=== PATIENT | female | born 1960 | race African-American/Black ===

== ENCOUNTER 2016-11-22 15:34 | Emergency (ER) | payer OTHER ==
[~2016-11-22 15:34] MED LIST: A/T/S 2% GEL30 GM TOP; ALBUTEROL17 GM INH; ATENOLOL PO; BENZONATATE PO; FLEXERIL10 MG PO; KETOPROFEN PO; NIFEREX-150150 MG PO; ORUDIS75 M1 PO; PRILOSEC PO; TRAMADOL HCL50 M2 PO; ZITHROMAX PO; [UNRECOGNIZED DRUG - OTHER]
[2016-11-22 15:54] LABS: URINE SOURCE CLEAN CATCH
[2016-11-22 16:02] LABS: URINE APPEARANCE CLOUDY; URINE BILIRUBIN NEG (NEG); URINE BLOOD NEG (NEG); URINE COLOR YELLOW; URINE GLUCOSE NEG (NEG); URINE KETONE NEG (NEG); URINE LEUKOCYTE ESTERASE NEG (NEG); URINE NITRATE NEG (NEG); URINE PROTEIN NEG (NEG); URINE SPECIFIC GRAVITY 1.018 (1.003-1.035); URINE UROBILINOGEN 0.2 MG/DL (NEG)
[2016-11-22 16:06] LABS: CULTURE INDICATED? NO
[2016-11-25 15:28] LABS: CHLAMYDIA TRACH Not Detected (Not Detected); N GONOR Not Detected (Not Detected)
== END 2016-11-22 17:09 | disposition home or self-care (01) ==
LOC: CFTX 15:34
PROVIDERS: Nurse Practitioner
DX: N76.0 Acute vaginitis (principal); E11.9 Type 2 diabetes mellitus without complications; I10 Essential (primary) hypertension; D64.9 Anemia, unspecified
CPT/HCPCS: 81003; 84703; 87491; 87591; 87808; 87905; 99284

== ENCOUNTER 2016-12-23 19:56 | Emergency (ER) | payer OTHER ==
--- NOTE | ~2016-12-23 | CR72 ---
[facility] A Service of [facility] RADIOLOGY TEXT RESULTS PATIENT: CRYSTAL ZAMBRANO LOCATION: [facility] : 64 UNIT #: [id number] AGE: [address]: Tanvir Healy MD SEX: F ORDER DR: [id number] [facility] [address] [place], [place] [address] [id number] MR#: [id number] #: [id number] NAME: CRYSTAL ZAMBRANO : 1960 SEX: F STUDY DATE/TIME: 12/23/2016 20:21 UNIT: [facility] ROOM: STUDY DESCRIPTION: CR Chest Single View Portable Attending Physician: Tanvir Healy M.D. Ordering Physician: Tanvir Healy M.D. Primary Care Physician: [facility] MEDICAL IMAGING REPORT This report is preliminary unless electronic signature is present EXAM Portable chest. HISTORY Chest pain today. Shortness of air. FINDINGS Cardiac size and pulmonary vascularity are normal. Mild right upper thoracic curve. Mild segmental elevation of the right hemidiaphragm. No airspace infiltrates or pleural effusions. IMPRESSION No acute findings. Dictated by... Malik Reyes M.D. THIS IS AN ELECTRONICALLY VERIFIED REPORT Malik Reyes M.D. at 12/24/2016 1:55 PM DFDeborah/rian TD: 12/24/2016 01:16 JOB #: [id number] MEDICAL IMAGING REPORT Page 1 of 1 COPY
--- NOTE | ~2016-12-23 | EKG ---
PATIENT: CRYSTAL ZAMBRANO UNIT #: [id number] Ventricular Rate: 71 BPM Atrial Rate: 71 BPM P-R Interval: 210 ms QRS Duration: 86 ms Q-T Interval: 392 ms QTC Calculation(Bezet): 425 ms P Ren[place]: 38 degrees Calculated R [place]: 18 degrees Calculated T [place]: 22 degrees Diagnosis Line: Sinus rhythm with 1st degree A-V block Diagnosis Line: Borderline ECG Diagnosis Line: When compared with ECG of 11-DEC-2013 11:42, Diagnosis Line: No significant change was found Diagnosis Line: Confirmed by KUSUM BLACK MD ([id number]) on 12/23/2016 Diagnosis Line: 11:02:22 PM INTERPRETING MD: WAYNE FALL
[2016-12-23 20:36] LABS: POC - CKMB <1.0 ng/mL (0.0-7.9); POC - TROPONIN <0.05 ng/mL (<=0.05)
[2016-12-23 20:39] LABS: BASOPHIL% 0.5 % (0-2.5); EOSINOPHIL# 0.1 X10e3 (0-0.7); EOSINOPHIL% 0.8 % (0.0-7.0); HEMATOCRIT 28.1 % (35.0-45.0); HEMOGLOBIN 9.3 gm/dL (12.0-16.0); LYMPHOCYTE# 2.7 X10e3 (1.0-3.5); LYMPHOCYTE% 39.4 % (17.0-45.0); MEAN CELL VOLUME 80.9 FL (83-96); MEAN CORPUSCULAR HEMOGLOBIN 26.7 PG (28-34); MEAN PLATELET VOLUME 9.1 FL (6.5-11.5); MONOCYTE# 0.4 X10e3 (0-1.0); MONOCYTE% 6.5 % (3.0-12.0); NEUTROPHIL# 3.6 X10e3 (1.5-7.1); NEUTROPHIL% 52.8 % (40-75); PLATELET COUNT 222 X10e3 (140-420); RED BLOOD COUNT 3.47 X10e (3.90-5.30); RED CELL DISTRIBUTION WIDTH 13.2 % (11.0-15.5); WHITE BLOOD COUNT 6.7 X10e3 (4.0-10.5)
[2016-12-23 20:40] LABS: DIFF IND NO
[2016-12-23 20:58] LABS: ALBUMIN SERUM 3.9 g/dL (3.5-5.0); ALKALINE PHOSPHATASE 42 U/L (32-92); ALT (SGPT) 13 U/L (10-40); AST (SGOT) 15 U/L (10-42); BILIRUBIN,TOTAL 0.3 mg/dL (0.2-2.0); BLOOD UREA NITROGEN 11 mg/dL (9-23); BUN/CREATININE RATIO 12.22; CALCIUM SERUM 8.8 mg/dL (8.4-10.2); CARBON DIOXIDE 24 mmol/L (22-31); CHLORIDE 107 mmol/L (100-111); CREATININE SERUM 0.9 mg/dL (0.6-1.4); GLOM FILT RATE Estimated 84.1 mL/min (>60); GLUCOSE FASTING 132 mg/dL (70-110); MAGNESIUM 1.9 mg/dL (1.6-3.0); POTASSIUM 3.3 mmol/L (3.5-5.1); PROTEIN TOTAL SERUM 6.8 g/dL (6.0-8.3); SODIUM 140 mmol/L (135-145)
[2016-12-23 20:59] LABS: BILIRUBIN, DIRECT <0.1 mg/dL (0.0-0.2); BILIRUBIN,INDIRECT 0.2 mg/dL (0.0-0.9)
[2016-12-23 21:56] LABS: POC - CKMB <1.0 ng/mL (0.0-7.9); POC - TROPONIN <0.05 ng/mL (<=0.05)
== END 2016-12-23 22:23 | disposition home or self-care (01) ==
LOC: CED 19:56
PROVIDERS: Emergency Medicine
DX: K21.0 Gastro-esophageal reflux disease with esophagitis (principal); E11.9 Type 2 diabetes mellitus without complications; I10 Essential (primary) hypertension; D64.9 Anemia, unspecified; Z98.51 Tubal ligation status
CPT/HCPCS: 36415; 71010; 80048; 80076; 82553; 83735; 84484; 85025; 93005; 96374; 96375; 99284; J2765

== ENCOUNTER 2017-04-14 14:10 | Emergency (ER) | payer OTHER ==
[~2017-04-14] VITALS: Ht 157.5 cm; Wt 72.6 kg
== END 2017-04-14 17:25 | disposition home or self-care (01) ==
LOC: CFTX 14:10 → CED 14:10 → CFTX 17:24
DX: S61.211A Laceration without foreign body of left index finger without damage to nail, initial encounter (principal); I10 Essential (primary) hypertension; E11.9 Type 2 diabetes mellitus without complications; W26.8XXA Contact with other sharp object(s), not elsewhere classified, initial encounter; Y92.009 Unspecified place in unspecified non-institutional (private) residence as the place of occurrence of the external cause
CPT/HCPCS: 99283